=== PATIENT | female | born 1955 | race Caucasian/White ===

== ENCOUNTER 2019-11-09 03:20 | Emergency (ER) | payer MEDICARE ==
[~2019-11-09] VITALS: Ht 167.6 cm; Wt 88.5 kg
[~2019-11-09 03:20] MED LIST: FLUO20CA19 PO; OLME5TAB3 PO
[2019-11-09 04:56] LABS: Basophils # (auto) 0 uL; Basophils % (auto) 0.5 % (0.0-2.0); Eosinophils # (auto) 0 uL; Eosinophils % (auto) 0.2 % (0.0-7.0); Hematocrit 40.5 % (36.0-46.0); Lymphocytes # (auto) 0.4 uL; Lymphocytes % (auto) 7.1 % (10.0-50.0); Mean Corpuscular Hemoglobin 31.5 pg (28.0-32.0); Mean Corpuscular Hgb Conc. 34.5 g/dL (32.0-36.0); Mean Corpuscular Volume 91.3 fL (80.0-100.0); Monocytes # (auto) 0.3 uL; Monocytes % (auto) 6.9 % (0.0-12.0); Neutrophils # (auto) 4.3 uL; Neutrophils % (auto) 85.3 % (37.0-80.0); Platelet Count (auto) 122 10^3/uL (140-450); Red Blood Cells 4.44 10^6/uL (4.0-5.20); Red Cell Distribution Width 14.7 % (11.8-14.3); White Blood Cell 5.1 10^3/uL (4.4-10.8)
[2019-11-09 07:06] LABS: Potassium 3.2 mmol/L (3.5-5.1)
[2019-11-09 07:16] LABS: Albumin 3.3 g/dL (3.4-5.0); BUN/Creatinine Ratio 24.7; Bilirubin, Total 0.3 mg/dL (0.2-1.0); Calcium 8.7 mg/dL (8.5-10.1); Total Protein 7.4 g/dL (6.4-8.2)
[2019-11-09] MEDS ORDERED: SODIUM CHLORIDE 0.9% 1,000 ML IV ONE (07:19)
[2019-11-09] MEDS ORDERED: POTASSIUM EFFERVESENT TAB 25 MEQ PO ONE (07:30)
[2019-11-09 08:51] LABS: Urine Bacteria FEW /hpf (None Seen); Urine Blood 1+ /uL (Negative); Urine Hyaline Cast MANY /lpf (0 - 2); Urine Mucus FEW (None Seen); Urine WBC 12 /hpf (0 - 5)
[2019-11-09 12:27] VITALS: BP 118/74
== END 2019-11-09 12:28 | disposition home or self-care (01) ==
LOC: EDUNIT# 03:20 → EDBD 03:20 → ER 03:24
DX: T50.901A Poisoning by unspecified drugs, medicaments and biological substances, accidental (unintentional), initial encounter (principal); R41.82 Altered mental status, unspecified; D69.6 Thrombocytopenia, unspecified; R82.71 Bacteriuria; E87.6 Hypokalemia; E44.1 Mild protein-calorie malnutrition; J45.909 Unspecified asthma, uncomplicated; I10 Essential (primary) hypertension; Z68.31 Body mass index [BMI] 31.0-31.9, adult; Y92.9 Unspecified place or not applicable
CPT/HCPCS: 36415; 70450; 71045; 80053; 81001; 82962; 83735; 84443; 85025; 93005; 96360; 96361; 99284; J7030